=== PATIENT | male | born 1995 | race Caucasian/White ===

== ENCOUNTER 2020-07-10 21:23 | Emergency (ER) | payer OTHER ==
[2020-07-10 22:31] LABS: Appearance,Urine Clear (Clear); Bilirubin,Urine Negative (Negative); Blood,Urine Negative (Negative); Color,Urine Light Yellow; Glucose,Urine (UA) Negative (Negative); Ketones,Urine Negative (Negative); Leukocyte Esterase,Urine Negative (Negative); Nitrite,Urine Negative (Negative); Protein,Urine Negative (Negative); Specific Gravity,Urine 1.011 (1.001-1.035); Urobilinogen,Urine <2.0 mg/dL (<2.0)
--- NOTE | 2020-07-10 23:33 | CT ---
EXAMINATION TYPE: CT abdomen pelvis wo con DATE OF EXAM: 07/10/2020 COMPARISON: None HISTORY: LLQ abd pain CT DLP: 777.7 mGycm Automated exposure control for dose reduction was used. Images obtained from the diaphragm to the floor the pelvis with no contrast. Lung bases are clear. There is no pleural effusion. Heart size is normal. There is no pericardial eff usion. Liver spleen stomach pancreas gallbladder appear normal. The bile ducts are not dilated. Gallbladder is contracted. There is no adrenal mass. There is 3 mm calculus in the interpolar left kidney. There is no hydroneph rosis. Ureters are not dilated. There is no retroperitoneal adenopathy. Bladder distends smoothly. Th ere is no inguinal hernia. Appendix is medial and appears normal. There is some fat stranding anterior to the lower descending c olon. There is minimal wall thickening. There is no free air. There is no ascites. There is no sign of a bowel obstruction. The lumbar verteb ra have normal alignment. Posterior elements are intact. There is no compression fracture. Bony pelvi s is intact. Hip joints appear normal. There is no hip dysplasia. IMPRESSION: Mild inflammatory changes around the lower descending colon consistent with focal colitis or divertic ulitis. No abscess. Nonobstructing left renal calculus.
[2020-07-10] MEDS ORDERED: metroNIDAZOLE 500 MG TAB PO STA (23:34)
[2020-07-10] MEDS ORDERED: ONDANSETRON ODT 4 MG TAB PO STA (23:34)
[2020-07-10] MEDS ORDERED: ACET/COD 300 MG/30 MG STARTER PACK 6 TAB BTL PO STA (23:34)
[2020-07-10] MEDS ORDERED: Acetaminophen-Codeine 300-30mg TAB PO STA (23:34)
[2020-07-10] MEDS ORDERED: ONDANSETRON 4 MG ODT STARTER PACK 2 TAB BTL PO STA (23:34)
[2020-07-10] MEDS ORDERED: CIPROFLOXACIN HCL 500 MG TAB PO STA (23:34)
--- NOTE | 2020-07-10 23:35 | ED ---
Abdominal Pain HPI - General Chief Complaint: Abdominal Pain Stated Complaint: ABD pain Time Seen by Provider: 07/10/20 21:36 Source: patient, RN notes reviewed, old records reviewed Mode of arrival: ambulatory Limitations: no limitations - History of Present Illness Initial Comments: This is a 24-year-old male presenting from urgent care for evaluation of abdominal pain. Patient has strong history of Crohn's disease in the family, patient concern for possibility of Crohn's being cause of pain. Patient having left-sided abdominal pain no blood in the stool no nausea vomiting no fevers. Patient is not himself at a colonoscopy. Surgery. Patient is about a day and a half abdominal pain cramping but worse tonight. Patient was again seen in [facility] sent DF for further evaluation MD Complaint: abdominal pain Location: periumbilical, LLQ Radiation: LLQ Migration to: suprapubic Severity: moderate Severity scale (1-10): 4 Quality: cramping, aching Consistency: intermittent Improves With: nothing Worsens With: nothing Context: other (none) Associated Symptoms: nausea, vomiting Treatments Prior to Arrival: other (none) - Related Data Home Medications Medication Instructions Recorded Confirmed Acetaminophen Tab [Tylenol Tab] 1,000 mg PO Q6HR PRN 07/10/20 07/10/20 Simethicone [Gas-X] 125 mg PO ACHS PRN 07/10/20 07/10/20 Previous Rx's Medication Instructions Recorded Ciprofloxacin HCl [Cipro] 500 mg PO Q12HR #20 tablet 07/10/20 metroNIDAZOLE [Flagyl] 500 mg PO TID #30 tab 07/10/20 Allergies Allergy/AdvReac Type Severity Reaction Status Date / Time amoxicillin Allergy Unknown Verified 07/10/20 22:12 Childhood Penicillins Allergy Unknown Verified 07/10/20 22:12 Childhood Review of Systems ROS Statement: Those systems with pertinent positive or pertinent negative responses have been documented in the HPI. ROS Other: All systems not noted in ROS Statement are negative. Past Medical History Past Medical History: Asthma History of Any Multi-Drug Resistant Organisms: None Reported Past Surgical History: Tonsillectomy Past Psychological History: No Psychological Hx Reported Smoking Status: Current every day smoker Past Alcohol Use History: Rare Past Drug Use History: None Reported General Exam Limitations: no limitations General appearance: alert, in no apparent distress Head exam: Present: atraumatic, normocephalic, normal inspection Eye exam: Present: normal appearance, PERRL, EOMI. Absent: scleral icterus, conjunctival injection, periorbital swelling ENT exam: Present: normal exam, mucous membranes moist Neck exam: Present: normal inspection. Absent: tenderness, meningismus, lymphadenopathy Respiratory exam: Present: normal lung sounds bilaterally. Absent: respiratory distress, wheezes, rales, rhonchi, stridor Cardiovascular Exam: Present: regular rate, normal rhythm, normal heart sounds. Absent: systolic murmur, diastolic murmur, rubs, gallop, clicks GI/Abdominal exam: Present: soft, normal bowel sounds. Absent: distended, tenderness, guarding, rebound, rigid Extremities exam: Present: normal inspection, full ROM, normal capillary refill. Absent: tenderness, pedal edema, joint swelling, calf tenderness Back exam: Present: normal inspection Neurological exam: Present: alert, oriented X3, CN II-XII intact Psychiatric exam: Present: normal affect, normal mood Skin exam: Present: warm, dry, intact, normal color. Absent: rash Course Vital Signs 07/10/20 07/11/20 21:28 00:35 Temperature 98 F 97.9 F Pulse Rate 69 78 Respiratory 18 16 Rate Blood Pressure 155/88 132/78 O2 Sat by Pulse 99 98 Oximetry - Reevaluation(s) Reevaluation #1: Medical record is reviewed Patient reevaluated in the emergency department, symptoms resolved Patient informed results questions answered Medical Decision Making - Medical Decision Making 24 M to the ER patient presents today for evaluation of abdominal pain does have acute diverticulitis. Patient informed of results here in the ER, he symptoms are improved here able tolerate on take and will be discharged home on antibiotics - Lab Data Lab Results 07/10/20 Range/Units 21:44 Urine Color Light Yellow Urine Appearance Clear (Clear) Urine pH 6.0 (5.0-8.0) Ur Specific [place] 1.011 (1.001-1.035) Urine Protein Negative (Negative) Urine Glucose (UA) Negative (Negative) Urine Ketones Negative (Negative) Urine Blood Negative (Negative) Urine Nitrite Negative (Negative) Urine Bilirubin Negative (Negative) Urine Urobilinogen <2.0 (<2.0) mg/dL Ur Leukocyte Esterase Negative (Negative) - Radiology Data Radiology results: report reviewed (CT head and pelvis positive for diverticulitis), image reviewed Disposition Clinical Impression: Diverticulitis, Abdominal pain Disposition: HOME SELF-CARE Condition: Good Instructions (If sedation given, give patient instructions): Diverticulitis (ED), Diverticulitis Diet (ED) Prescriptions: Ciprofloxacin HCl [Cipro] 500 mg PO Q12HR #20 tablet metroNIDAZOLE [Flagyl] 500 mg PO TID #30 tab Is patient prescribed a controlled substance at d/c from ED?: No Referrals: None,Stated [Primary Care Provider] - 1-2 days Gustavo Sams MD [STAFF PHYSICIAN] - 1-2 days
[2020-07-11 00:36] VITALS: BP 132/78; PULSE 78; RESP 16; TEMP 97.9
== END 2020-07-11 00:10 | disposition home or self-care (01) ==
LOC: EC 21:23
DX: K57.32 Diverticulitis of large intestine without perforation or abscess without bleeding (principal); J45.909 Unspecified asthma, uncomplicated; F17.200 Nicotine dependence, unspecified, uncomplicated; Z90.09 Acquired absence of other part of head and neck
CPT/HCPCS: 81003; 74176; 99284; S0119

== ENCOUNTER 2020-08-24 10:03 | Day surgery (SDC) | payer OTHER ==
[2020-08-19 11:31] VITALS: BMI 29.7
[~2020-08-24 10:03] MED LIST: LACTATED RINGERS 1,000 ML IV SCH
[2020-08-24 10:23] VITALS: TEMP 97.8
[2020-08-24] MEDS ORDERED: PROPOFOL 10 MG/ML 20 ML VIAL IV ONE (11:23)
--- NOTE | 2020-08-24 11:56 | P.PCN ---
Date of Procedure: 08/24/20 Description of Procedure: BRIEF HISTORY: Patient is a 24-year-old male presenting for outpatient colonoscopy for evaluation of diverticulitis of the large bowel. Computed tomography scan on 07/10/20 showed mild inflammatory changes of the lower descending colon consistent with focal colitis or diverticulitis he was treated with antibiotic therapy. Bowel movements are twice daily with occasional blood per rectum. He does report father with sigmoid resection for diverticulitis and Crohn's disease in an uncle and cousin's. PROCEDURE PERFORMED: Colonoscopy. PREOPERATIVE DIAGNOSIS: Diverticulitis of the large intestine. ESTIMATED BLOOD LOSS: Minimal. IV sedation per Anesthesia. PROCEDURE: After informed consent was obtained, the patient, was brought into the endoscopy unit. IV sedation was administered by Anesthesia under continuous monitoring. Digital rectal examination was normal. Initially the Olympus CF-190 flexible video colonoscope was then inserted in the rectum, gradually advanced into the cecum without any difficulty. Careful examination was performed as the scope was gradually being withdrawn. Ileocecal valve and the appendiceal orifice were visualized and appeared normal. Prep was poor with solid stool throughout the entire colon. Mucosa of the cecum, ascending colon, transverse colon, descending colon, sigmoid colon, and rectum which was able to visualize did appear normal however complete visualization of the mucosa was prohibited by poor prep. A few scattered small diverticula noted in the sigmoid colon. Retroflexion was performed in the rectum and no lesions were seen, Low-grade internal hemorrhoids noted. The patient tolerated the procedure well. IMPRESSION: Poor prep. Mild sigmoid diverticulosis. Normal-appearing colon from rectum to cecum and normal appearing terminal ileum, although complete visualization of the mucosa was prohibited secondary to poor prep. Internal hemorrhoids. RECOMMENDATIONS: Findings of this examination were discussed with the patient and his family. Okay to resume diet. Okay to resume medications. High-fiber diet recommended. Follow-up in the GI clinic as needed for further care.
[2020-08-24 12:10] VITALS: BP 129/74; PULSE 66; RESP 20
== END 2020-08-24 12:12 | disposition home or self-care (01) ==
LOC: ORWHC2ENDO 10:03
PROVIDERS: ATTEND Internal Medicine
DX: K57.32 Diverticulitis of large intestine without perforation or abscess without bleeding (principal); K64.8 Other hemorrhoids; Z83.79 Family history of other diseases of the digestive system; K62.5 Hemorrhage of anus and rectum; F17.210 Nicotine dependence, cigarettes, uncomplicated; Z79.899 Other long term (current) drug therapy; Z88.0 Allergy status to penicillin; Z90.89 Acquired absence of other organs
CPT/HCPCS: 45378; J2704

== ENCOUNTER → 2021-09-15 | Outpatient (CLI) | payer BC ==
--- NOTE | 2021-09-15 12:00 | CA ---
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 18 - 58 / 22 - 52 cm??? M-MODE Aortic Root Diameter MM 3.3 cm MV E Point Septal Separation 0.6 cm AV Cusp Separation MM 2.5 cm DOPPLER AV Peak Velocity 142.2 cm/s AV Peak Gradient 8.1 mmHg MV Area PHT 3.8 cm??? Mitral E Point Velocity 117.5 cm/s Mitral A Point Velocity 63.3 cm/s Mitral E to A Ratio 1.9 MV Deceleration Time 200.4 ms MV E' Velocity 11.0 cm/s Mitral E to MV E' Ratio 10.7 TR Peak Velocity 180.2 cm/s TR Peak Gradient 13.0 mmHg Right Ventricular Systolic Press 18.0 mmHg FINDINGS Left Ventricle Left ventricular ejection fraction is estimated at 60-65 %. Left ventricular cavity size normal. Borderline left ventricular hypertrophy. Right Ventricle Normal right ventricular size and function. Right ventricular systolic pressure within normal limits. Right Atrium Normal right atrial size. Left Atrium Normal left atrial size. No evidence for an atrial septal defect. Mitral Valve Structurally normal mitral valve. No mitral stenosis, or prolapse. No regurgitation Aortic Valve Trileaflet aortic valve. No aortic valve stenosis or regurgitation. Tricuspid Valve Mild tricuspid regurgitation. Normal appearance of the tricuspid valve Pulmonic Valve Structurally normal pulmonic valve. Pericardium Normal pericardium. No pericardial effusion. Aorta Normal size aortic root and proximal ascending aorta. CONCLUSIONS 1. Normal left ventricle size and systolic function 2. Mild tricuspid regurgitation 3. Normal appearance of the aortic valve. Previewed by: Dr. Myra Linn MD (Electronically Signed) Final Date: 15 September 2021 11:59
== END | disposition home or self-care (01) ==
LOC: RADECHMAIN 08:19
PROVIDERS: ATTEND Family Medicine
DX: Q23.1 Congenital insufficiency of aortic valve (principal)
CPT/HCPCS: 93306